=== PATIENT | female | born 1950 | race Caucasian/White ===

== ENCOUNTER 2023-07-19 07:36 | Outpatient (CLI) | payer MEDICARE, BC ==
[2023-07-19] MEDS ORDERED: Iopamidol 370 76% 100 ML VIAL ONE (09:13)
== END 2023-07-19 07:37 | disposition home or self-care (01) ==
LOC: CT 07:36
PROVIDERS: ATTEND Internal Medicine Hematology & Oncology
DX: C49.8 Malignant neoplasm of overlapping sites of connective and soft tissue (principal)
CPT/HCPCS: 71260; 74177; 78306; 82565; A9503; Q9967

== ENCOUNTER 2023-08-06 10:52 | Outpatient (CLI) | payer MEDICARE, BC | END 2023-08-06 10:53 | disposition home or self-care (01) | LOC: PET 10:52 | PROVIDERS: ATTEND Internal Medicine Hematology & Oncology | DX: C49.8 Malignant neoplasm of overlapping sites of connective and soft tissue (principal) | CPT/HCPCS: 78815; A9552 ==